=== PATIENT | female | born 1995 | race American Indian/Alaskan Native ===

== ENCOUNTER 2019-08-30 09:20 | Emergency (ER) | payer SELFPAY ==
[2019-08-30] MEDS ORDERED: ACETAMINOPHEN 500 MG TAB PO ONE (09:32)
[2019-08-30 10:11] LABS: Basophils % (Auto) 0.1 % (0.0-1.8); Eosinophils % (Auto) 0.2 % (0.0-4.3); Hematocrit 38.4 % (30.3-42.9); Hemoglobin 13.3 gm/dl (10.1-14.3); Lymphocytes % (Auto) 10.9 % (13.4-35.0); Mean Corpuscular HGB Conc 35 % (30-34); Mean Corpuscular Volume 89 fl (79-97); Monocytes # (Auto) 0.5 K/mm3 (0.0-0.8); Monocytes % (Auto) 5.3 % (0.0-7.3); Platelet Count 162 K/mm3 (140-440); Red Blood Count 4.34 M/mm3 (3.65-5.03); Red Cell Distribution Width 12.3 % (13.2-15.2)
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
--- NOTE | 2019-08-30 11:22 | Ultrasound Report ---
ULTRASOUND OBSTETRIC INDICATION / CLINICAL INFORMATION: vaginal bleeding . TECHNIQUE: Transabdominal and Transvaginal. Duplex ultrasound with spectral technique was also performed through both ovaries. COMPARISON: None available. FINDINGS: GESTATIONAL SAC: Well-defined oval shape and intrauterine in location. Small 1 cm implantation bleed/ subchorionic hemorrhage YOLK SAC: No significant abnormality. EMBRYO/FETUS: No significant abnormality. - [place]-Rump Length = 0.9 cm = 6 weeks, 6 day(s). - Heart Rate, beats per minute (if present) = 135 ADNEXA: No significant abnormality. Normal color Doppler and spectral waveforms are seen within both ovaries without torsion. FREE FLUID: None. ADDITIONAL FINDINGS: None. IMPRESSION: 1. Single, living intrauterine with estimated sonographic age of 6 weeks, 6 day(s). 2. Small 1 cm implantation bleed Signer Name: Donny Pak MD Signed: 08/30/2019 11:18 AM Workstation Name: [id number]
--- NOTE | 2019-08-30 11:22 | Ultrasound Report ---
ULTRASOUND OBSTETRIC INDICATION / CLINICAL INFORMATION: vaginal bleeding . TECHNIQUE: Transabdominal and Transvaginal. Duplex ultrasound with spectral technique was also performed through both ovaries. COMPARISON: None available. FINDINGS: GESTATIONAL SAC: Well-defined oval shape and intrauterine in location. Small 1 cm implantation bleed/ subchorionic hemorrhage YOLK SAC: No significant abnormality. EMBRYO/FETUS: No significant abnormality. - [place]-Rump Length = 0.9 cm = 6 weeks, 6 day(s). - Heart Rate, beats per minute (if present) = 135 ADNEXA: No significant abnormality. Normal color Doppler and spectral waveforms are seen within both ovaries without torsion. FREE FLUID: None. ADDITIONAL FINDINGS: None. IMPRESSION: 1. Single, living intrauterine with estimated sonographic age of 6 weeks, 6 day(s). 2. Small 1 cm implantation bleed Signer Name: Donny Pak MD Signed: 08/30/2019 11:18 AM Workstation Name: [id number]
[2019-08-30 11:35] VITALS: BP 112/71
== END 2019-08-30 11:55 | disposition home or self-care (01) ==
LOC: ED 09:20
DX: O9A.211 Injury, poisoning and certain other consequences of external causes complicating pregnancy, first trimester (principal); O20.0 Threatened abortion; S09.8XXA Other specified injuries of head, initial encounter; S39.81XA Other specified injuries of abdomen, initial encounter; Y00.XXXA Assault by blunt object, initial encounter; Y93.89 Activity, other specified; Y92.89 Other specified places as the place of occurrence of the external cause; Y99.8 Other external cause status; Z3A.01 Less than 8 weeks gestation of pregnancy
CPT/HCPCS: 36415; 76801; 76802; 76817; 76830; 84702; 85025; 86900; 86901; 96372; 99284